=== PATIENT | female | born 1970 | race African-American/Black ===

== ENCOUNTER 2018-06-20 10:18 | Outpatient (CLI) | payer OTHER ==
--- NOTE | 2018-06-20 12:35 | ULT ---
PELVIC SONOGRAM TRANSABDOMINAL AND TRANSVAGINAL IMAGING WITH DUPLEX EVALUATION: HISTORY: Pelvic bleeding. FINDINGS: Urinary bladder is unremarkable. Uterus has a heterogeneous echotexture and is 9.7 cm. Endometrium is 1.0 cm. Physiologic amount of free fluid within the cul-de-sac. The right ovary is 3.1 cm and the left is 3.3 cm. Each contains follicles and demonstrates good colo r and spectral Doppler flow. IMPRESSION: No significant abnormalities are demonstrated. POS: JEANETTE
== END 2018-06-20 10:19 | disposition home or self-care (01) ==
LOC: BICULT 10:18
PROVIDERS: ATTEND Family Medicine
DX: N92.0 Excessive and frequent menstruation with regular cycle (principal)
CPT/HCPCS: 76856

== ENCOUNTER 2019-06-05 03:13 | Emergency (ER) | payer OTHER ==
[2019-06-05] MEDS ORDERED: Acetaminophen 500 MG TAB ONE (03:35)
[2019-06-05 04:07] LABS: Hemoglobin 11.9 g/dL (12.0-16.0); Mean Corpuscular HGB CONC 32.1 g/dL (32.0-36.0); Mean Corpuscular Hemoglobin 27.7 pg (27.0-31.0); Mean Corpuscular Volume 86.5 fL (78.0-98.0); Red Blood Cell (RBC) Count 4.27 mill/uL (4.20-5.40); White Blood Cell (WBC) Count 7.4 thou/uL (4.8-10.8)
[2019-06-05 04:16] LABS: BHCG - Serum Negative (NEGATIVE); Pregs Control Background? CLEAR/WHITE (CLR/WHITE); Pregs Control Bar Appear? YES (CONTROL BAR)
[2019-06-05 04:25] LABS: ALT (SGPT) 27 U/L (8-55); AST (SGOT) 57 U/L (5-34); Albumin 3.9 g/dL (3.5-5.0); Alkaline Phosphatase 105 U/L (40-110); Anion Gap 16 mmol/L (10-20); BUN (Urea Nitrogen) 6 mg/dL (7.0-18.7); Bilirubin, Total 0.3 mg/dL (0.2-1.2); Calc. Creatinine Clearance 0 mL/min (70-130); Calcium 8.4 mg/dL (7.8-10.44); Carbon Dioxide 18 mmol/L (22-29); Chloride 108 mmol/L (98-107); Estimated GFR-MDRD 72; Globulin 4.3 g/dL (2.4-3.5); Glucose 78 mg/dL (70-105); Potassium 3.7 mmol/L (3.5-5.1); Protein, Total 8.2 g/dL (6.0-8.3); Sodium 138 mmol/L (136-145)
[2019-06-05 04:26] LABS: Anisocytosis SLIGHT = 6-15 cells (100X) (0-5/hpf); Band 1 % (5-11); Lymphocytes 63 % (21-51); MDiff Complete? YES; Monocytes 2 % (0-10); Neutrophil 34 % (42-75); Platelet Count 225 thou/uL (130-400); Platelet Morphology Comment Appears Adequate; RBC Distribution Width 22.8 % (11.5-14.5)
[2019-06-05] MEDS ORDERED: hydrOXYzine Pamoate 25 mg Capsule ONE (04:39)
--- NOTE | 2019-06-05 07:57 | CT ---
PRELIMINARY REPORT/[facility]/EMERGENCY AFTER HOURS PROCEDURE: PROCEDURE INFORMATION: Exam: CT Head without contrast Exam date and time: 06/05/2019 3:51 AM Clinical history: 49 years old, female; Syncope and collapse; Patient HX: 49 y/o F presents to ED S/P fall that occurred at approx 0200 today. PT awoke this morning and walked to her son's bedroom, info rming him of her dizziness and generalized weakness. She then fell onto her R side, with her son desc ribing the she was unconscious for approx 5 minutes TECHNIQUE: Imaging protocol: Computed tomography of the head without contrast. COMPARISON: No relevant prior studies available. FINDINGS: Brain: No brain edema. No intracranial hemorrhage. Mild generalized volume loss of the brain. Ventricles: Normal. No ventriculomegaly. Bones/joints: Fracture deformity of the medial wall/floor of the right orbit, probably chronic. Sinuses: Visualized sinuses are unremarkable. No fluid levels. Mastoid air cells: Visualized mastoid air cells are well aerated. Soft tissues: Unremarkable. IMPRESSION: 1. Fracture deformity of the medial wall/floor of the right orbit, probably chronic. 2. No acute brain findings. Thank you for allowing us to participate in the care of your patient. Dictated and Authenticated by: Tay Davison MD 06/05/2019 4:05 AM Central Time ([place] & [place]) FINAL REPORT EMERGENCY AFTER HOURS CT BRAIN WITHOUT CONTRAST: Date: 06/05/19 FINDINGS/IMPRESSION: I agree with the findings and impression given in the preliminary report per [facility] physician. 1. No evidence of acute intracranial abnormality. 2. Remote dehiscence of the right medial orbital wall. POS: CET
--- NOTE | 2019-06-05 08:05 | RAD ---
SINGLE VIEW OF THE CHEST: COMPARISON: 08/22/2015. HISTORY: Fall with chest pain. FINDINGS: Single view of the chest shows a normal sized cardiomediastinal silhouette. There is no evidence of c onsolidation, mass, or pleural effusion. Hardware is seen in the cervical spine. IMPRESSION: No evidence of acute cardiopulmonary disease. POS: CET
== END 2019-06-05 04:55 | disposition home or self-care (01) ==
LOC: ERS 03:13
DX: R55 Syncope and collapse (principal); F41.9 Anxiety disorder, unspecified; I10 Essential (primary) hypertension; F32.9 Major depressive disorder, single episode, unspecified; Z79.899 Other long term (current) drug therapy; W18.30XA Fall on same level, unspecified, initial encounter
CPT/HCPCS: 36415; 70450; 71045; 80053; 84484; 84703; 85025; 93005; 96360; Q0177

== ENCOUNTER 2019-07-27 17:54 | Emergency (ER) | payer OTHER | END 2019-07-27 18:15 | disposition left against medical advice (07) | LOC: ERS 17:54 | DX: Z53.21 Procedure and treatment not carried out due to patient leaving prior to being seen by health care provider (principal) ==

== ENCOUNTER 2021-03-31 05:43 | Emergency (ER) | payer OTHER ==
[2021-03-31 06:37] LABS: #Eosinphils 0.1 thou/uL (0.0-0.7); #Lymphocytes 1.7 thou/uL (1.20-3.40); #Monocytes 0.4 thou/uL (0.11-0.59); #Neutrophils 1.9 thou/uL (1.40-6.50); %Eosinophils 2.2 % (0.0-10.0); %Lymphocytes 41.4 % (21.0-51.0); %Monocytes 9.4 % (0.0-10.0); %Neutrophils 46.1 % (42.0-75.0); Hemoglobin 12.9 g/dL (12.0-16.0); Mean Corpuscular HGB CONC 32.7 g/dL (32.0-36.0); Mean Corpuscular Hemoglobin 30.2 pg (27.0-31.0); Mean Corpuscular Volume 92.5 fL (78.0-98.0); Mean Platelet Volume 9.2 fL (7.4-10.4); Platelet Count 144 thou/uL (130-400); RBC Distribution Width 11.2 % (11.5-14.5); Red Blood Cell (RBC) Count 4.27 mill/uL (4.20-5.40); White Blood Cell (WBC) Count 4.2 thou/uL (4.8-10.8)
[2021-03-31 06:55] LABS: ALT (SGPT) 115 U/L (8-55); AST (SGOT) 184 U/L (5-34); Acetaminophen Less than 6.0 mcg/mL (10.0-30.0); Albumin 3.8 g/dL (3.5-5.0); Alcohol Less than 10 mg/dL (Less than 10); Alkaline Phosphatase 83 U/L (40-110); Anion Gap 13 mmol/L (10-20); BUN (Urea Nitrogen) 6 mg/dL (7.0-18.7); Bilirubin, Total 0.5 mg/dL (0.2-1.2); Calc. Creatinine Clearance 0 mL/min (70-130); Calcium 9.3 mg/dL (7.8-10.44); Carbon Dioxide 24 mmol/L (22-29); Chloride 102 mmol/L (98-107); Globulin 4.3 g/dL (2.4-3.5); Glucose 143 mg/dL (70-105); Potassium 4.2 mmol/L (3.5-5.1); Protein, Total 8.1 g/dL (6.0-8.3); Salicylate Less than 8.0 mg/dL (15.0-30.0); Sodium 135 mmol/L (136-145)
== END 2021-03-31 07:56 | disposition home or self-care (01) ==
LOC: ERS 05:43
DX: R56.9 Unspecified convulsions (principal); R74.8 Abnormal levels of other serum enzymes; I10 Essential (primary) hypertension
CPT/HCPCS: 36415; 70450; 80053; 80307; 85025

== ENCOUNTER 2022-04-18 12:24 | Outpatient (CLI) | payer OTHER | END 2022-04-18 12:25 | disposition home or self-care (01) | LOC: BICRAD 12:24 | PROVIDERS: ATTEND Internal Medicine | DX: Z02.71 Encounter for disability determination (principal); M47.816 Spondylosis without myelopathy or radiculopathy, lumbar region | CPT/HCPCS: 72100 ==